=== PATIENT | male | born 1950 | race Caucasian/White ===

== ENCOUNTER 2022-05-03 19:08 | Inpatient (IN) | payer MEDICARE, BC ==
[~2022-05-03] VITALS: Ht 167.6 cm; Wt 63.5 kg
--- NOTE | 2022-05-03 19:20 | NUR ---
DARRYL FROM HOME FOR SHARP SUBSTERNAL CP NON RADIATING, 30 MINS AGO 325 ASPIRIN AND 1 SPRAY NITRO GIVEN BY EMS. PLACED IN BED, AAOX4, BREATHING EVEN AND UNLABORED SATURATING AT 98%RA, ATTACHED TO MONITOR SHOWS NORMAL SINUS RHYTHM PA- 74, IN PAIN 6/10 PS.
--- NOTE | 2022-05-03 19:25 | NUR ---
QUALITY SYSTEMS ENGINEER AT BEDSIDE
[2022-05-03 19:50] LABS: CARBON DIOXIDE 29 mmol/L (21-32); CHLORIDE 103 mmol/L (98-107); CREATININE 0.8 mg/dL (0.6-1.3); GLUCOSE 224 mg/dL (74-106); POTASSIUM 3.9 mmol/L (3.5-5.1); SODIUM SERUM 139 mmol/L (136-145); UREA NITROGEN, BLOOD 13 mg/dL (7-18)
--- NOTE | 2022-05-03 19:50 | NUR ---
SWAB FOR COVID19 SENT TO LAB
[2022-05-03 19:58] LABS: ALANINE AMINOTRANSFERASE 27 U/L (12-78); ALBUMIN 3.7 g/dL (3.4-5.0); ALKALINE PHOSPHATASE 108 U/L (46-116); ASPARTATE AMINOTRANSFERASE 16 U/L (15-37); BILIRUBIN,DIRECT 0.1 mg/dL (0.0-0.2); BILIRUBIN,TOTAL 0.4 mg/dL (0.2-1.0); TOTAL PROTEIN, SERUM 6.6 g/dL (6.4-8.2)
[2022-05-03 20:43] LABS: BASOPHILS % (AUTO) 0.4 % (0.0-2.0); EOSINOPHILS % (AUTO) 2.6 % (0.0-6.0); HEMATOCRIT 37 % (39-51); HEMOGLOBIN 12.7 g/dL (13.5-17.5); LYMPHOCYTES # (AUTO) 1.6 K/uL (0.8-4.8); LYMPHOCYTES % (AUTO) 30.4 % (20.0-44.0); MEAN CORPUSCULAR HGB CONC 34 g/dl (31.0-36.0); MEAN CORPUSCULAR VOLUME 85 fL (80-96); MONOCYTES # (AUTO) 0.4 K/uL (0.1-1.30); MONOCYTES % (AUTO) 7.8 % (2.0-12.0); NEUTROPHILS # (AUTO) 3.1 K/uL (1.8-8.9); NEUTROPHILS % (AUTO) 58.8 % (43.0-81.0); PLATELET COUNT (AUTO) 118 K/uL (150-450); RED BLOOD CELL COUNT(AUTO) 4.43 MIL/uL (4.5-6.0); WHITE BLOOD COUNT (AUTO) 5.2 K/uL (4.3-11.0)
--- NOTE | 2022-05-03 21:18 | NUR ---
EPIC PANEL PAGED
--- NOTE | 2022-05-03 21:23 | NUR ---
LEODAN LEMOS ON THE PHONE WITH DR NIELSEN
--- NOTE | 2022-05-03 22:09 | NUR ---
REPORT GIVEN TO GLADIS LEON ROOM 310-2 FOR TRACEY
--- NOTE | 2022-05-03 22:37 | NUR ---
TRANSFERRED TO 310 UN JJ ACLS
--- NOTE | 2022-05-03 23:00 | NUR ---
RAILWAY TRACK WORKER ADMISSION NOTES ADMITTED A 71 Y/O MALE, CAME FROM ER VIA GURNEY ACCOMPANIED WITH DAUGHTER, NURSE AND SWITCH INSPECTOR AT 2230. PATIENT IS A/O X 4, ABLE TO VERBALIZED NEEDS. PATIENT IS COOPERATIVE AND ORIENTED SURROUNDINGS. TRANSFER PATIENT TO BED SAFETY AND SECURED. WITH INITIAL VITAL SIGNS OF TEMP:97.8, CA: 81, RR:18, SpO2:99, BP:184/79. UPON ASSESSMENT PATIENT COMPLAIN OF CHEST PAIN 5/10 PS, NO OTHER SYMPTOMS. PATIENT IS NOT IN DISTRESS AT THIS TIME. ATTACHED PATIENT TO TELE MONITOR DEVICE. SKIN ASSESSMENT PERFORMED, NOTED SOME REDNESS AND SCRATCHES AT LOWER EXTREMITIES. PICTURE TAKEN AND RECORDED. NO EDEMA NOTED. BOWEL SOUNDS ARE ACTIVE. WITH IV ACCESS AT LFA #20G PATENT AND INTACT. PATIENT HISTORY AND LIST OF MEDICATION TAKEN AND RECORDED. INFORMED DR. CLAIRE REGARDING ADMISSION WITH ORDERS MADE AND CARRIED OUT. ALL PATIENT BELONGINGS ARE ACCOUNTED AND RECORDED FOR. PATIENT IS ORIENTED TO THE UNIT AND HOW TO USE THE CALL LIGHT. HEAD TO TOE PHYSICAL EXAM DONE AND RECORDED. KEPT BED ON LOWER LOCKED POSITION. KEPT SIDE RAILS UP X 2 ALL THE TIME. KEPT CALL LIGHT WITHIN AT REACH. PATIENT IS ON BED REST FOR NOW USES URINAL AND DIAPER. WILL CONTINUE TO MONITOR.
[2022-05-03 23:01] VITALS: BP 194/79
[2022-05-03] MEDS ORDERED: MAGNESIUM HYDROXIDE 30 ML UDC PO PRN (23:30)
[2022-05-03] MEDS ORDERED: ENOXAPARIN SODIUM 40 MG/0.4 ML DISP.SYRIN SQ SCH (23:30)
[2022-05-03] MEDS ORDERED: hydrALAZINE HCL IV 20 MG VIAL IV PRN (23:30)
[2022-05-03] MEDS ORDERED: ACETAMINOPHEN 325 MG TABLET PO PRN (23:30)
[2022-05-03] MEDS ORDERED: Z GUARD REMEDY 4 OZ OINT TP PRN (23:30)
[2022-05-03] MEDS ORDERED: MORPHINE SULFATE INJ 2 MG/ML DISP.SYRIN IV PRN (23:30)
[2022-05-03] MEDS ORDERED: ONDANSETRON HCL/PF 4 MG/2 ML VIAL IVP PRN (23:30)
[2022-05-03] MEDS ORDERED: TAMSULOSIN 0.4 MG CAP.SR.24H PO SCH (23:30)
[2022-05-03] MEDS ORDERED: BISACODYL SUPP (10 MG) 10 MG/SUPP.RECT SUPP.RECT RC PRN (23:30)
[2022-05-03] MEDS ORDERED: ATORVASTATIN 40 MG TABLET PO SCH (23:30)
[2022-05-03] MEDS ORDERED: QUETIAPINE FUMARATE 25 MG TABLET PO ONE (23:30)
[2022-05-04] MEDS: APIXABAN 5 MG TABLET PO SCH ×2 (00:01→08:31)
[2022-05-04 00:10] VITALS: BP 184/75
[2022-05-04] MEDS ORDERED: NITROGLYCERIN PACKET 1 GM PACKET ONE (00:27)
[2022-05-04] MEDS: NITROGLYCERIN 30 GM TUBE TP SCH ×2 (00:30→08:30)
[2022-05-04] MEDS ORDERED: DONEPEZIL 5 MG TABLET PO SCH (00:30)
--- NOTE | 2022-05-04 01:46 | NUR ---
EDWARD ORTHOSTATIC BLOOD PRESSURE LYING ON BED: 122/68 SITTIN/61 STANDIN/51 WILL CONTINUE TO MONITOR
[2022-05-04 01:50] VITALS: BP_SYST 103; BP_SYST 122; BP_DIAS 61; BP_DIAS 68
[2022-05-04 01:51] VITALS: BP 94/51
[2022-05-04 04:52] VITALS: BP 105/57
--- NOTE | 2022-05-04 06:00 | NUR ---
RN NOTES NOTED LOW BLOOD PRESSURE OF 95/55.NO S/S OF DIZZINESS OR CHEST PAIN AT THIS TIME. PUT LOWER EXTREMITIES ELEVATED HOOKED TO OXYGEN SUPPORT AT 2LPM VIA NASAL CANNULA. WILL CONTINUE TO MONITOR.
--- NOTE | 2022-05-04 06:30 | NUR ---
RN NOTES PATIENT BLOOD PRESSURE IS 105/56. WILL CONTINUE TO MONITOR
--- NOTE | 2022-05-04 06:39 | NUR ---
MORTGAGE CLOSING CLERK CLOSING NOTES PATIENT IS IN BED, A/O X 4. AWAKE AND COHERENT ABLE TO VERBALIZED CONCERNS. ON HIGH BACK REST POSITION, NO S/S OF CHEST PAIN OR ANY DISCOMFORT AT THIS TIME. HOOKED TO OXYGEN VIA NASAL CANNULA AT 2LPM SATURATING WELL. WITH IV ACCESS AT LEFT FA #20G PATENT AND INTACT. CONTINENT PATIENT USES URINAL AND WITH BEDSIDE COMMODE AVAILABLE. PATENT AND INTACT. ALL DUE MEDICATIONS GIVEN ALL NEEDS MET. KEPT PATIENT WARM AND COMFORTABLE. KEPT BED ON LOWER LOCK POSITION. KEPT SIDE RAILS UP ALL THE TIME. KEPT CALL LIGHT WITHIN AT REACH. WILL ENDORSED TO AM SHIFT FOR TRACEY.
[2022-05-04 06:57] LABS: BASOPHILS % (AUTO) 0.4 % (0.0-2.0); EOSINOPHILS % (AUTO) 2.6 % (0.0-6.0); HEMATOCRIT 35 % (39-51); HEMOGLOBIN 11.9 g/dL (13.5-17.5); LYMPHOCYTES % (AUTO) 33.4 % (20.0-44.0); MEAN CORPUSCULAR HGB CONC 34 g/dl (31.0-36.0); MEAN CORPUSCULAR VOLUME 85 fL (80-96); MONOCYTES # (AUTO) 0.5 K/uL (0.1-1.30); MONOCYTES % (AUTO) 8.2 % (2.0-12.0); NEUTROPHILS # (AUTO) 3.3 K/uL (1.8-8.9); NEUTROPHILS % (AUTO) 55.4 % (43.0-81.0); PLATELET COUNT (AUTO) 101 K/uL (150-450); RED BLOOD CELL COUNT(AUTO) 4.15 MIL/uL (4.5-6.0)
[2022-05-04] MEDS ORDERED: PANTOPRAZOLE 40 MG TABLET.DR PO SCH (07:30)
--- NOTE | 2022-05-04 07:40 | NUR ---
INVENTORY AUDITOR OPENING NOTE RECEIVED PATIENT IS IN BED, A/O X 4. ABLE TO MAKE NEEDS KNOWN. NO S/S OF CHEST PAIN OR ANY DISCOMFORT AT THIS TIME. HOOKED TO OXYGEN VIA NASAL CANNULA AT 2LPM SATURATING WELL, BREATHING EVEN AND NON LABORED. PT IS ON EXTERNAL BUILDING ATTENDANT READING SR @76 BPM. WITH IV ACCESS AT LEFT FA #20G PATENT AND INTACT, SL. SAFETY MEASURES IN PLACE: CALL LIGHT WITHIN REACH, SIDE RAILS UP X 2, BED LOCKED IN LOWEST POSITION, BED ALARM ON. WILL CONTINUE TO MONITOR.
[2022-05-04 08:00] VITALS: BP 117/68
[2022-05-04 08:03] LABS: FERRITIN 72 ng/mL (8-388)
[2022-05-04 08:04] LABS: CALCIUM, SERUM 8.9 mg/dL (8.5-10.1); CARBON DIOXIDE 25 mmol/L (21-32); CHLORIDE 107 mmol/L (98-107); CREATININE 0.6 mg/dL (0.6-1.3); GLUCOSE 110 mg/dL (74-106); SODIUM SERUM 140 mmol/L (136-145); UREA NITROGEN, BLOOD 11 mg/dL (7-18)
[2022-05-04 08:05] LABS: PHOSPHORUS 4.1 mg/dL (2.5-4.9)
[2022-05-04 08:22] LABS: IRON, SERUM 66 ug/dl (50-175); TOTAL IRON BINDING CAPACITY 274 ug/dl (250-450)
[2022-05-04 08:30] VITALS: BP 117/68
[2022-05-04 08:31] LABS: CHOLESTEROL 89 mg/dL (<200); HDL CHOLESTEROL 42 mg/dL (40-60); LDL 40 mg/dL (0-99); THYROID STIMULATING HORMONE 3.343 uIU/mL (0.358-3.74); TRIGLYCERIDES 99 mg/dL (30-150)
[2022-05-04] MEDS ORDERED: DEXTROSE 50%-WATER 50 ML DISP.SYRIN IV PRN (09:00)
[2022-05-04] MEDS ORDERED: ASPIRIN 81 MG TAB.CHEW PO SCH (09:00)
[2022-05-04] MEDS ORDERED: INSULIN REGULAR, HUMAN 100 UNIT/ML 3 ML VIAL SQ PRN (09:00)
[2022-05-04] MEDS ORDERED: BLOOD SUGAR DIAGNOSTIC 1 EACH STRIP IN SCH (12:00)
--- NOTE | 2022-05-04 13:45 | NUR ---
ELECTRIC PLATER NOTE PATIENT DISCHARGE IN STABLE MEDICAL CONDITION. A/OX4. VS TAKEN, STABLE AND RECORDED. NO IV ACCESS. NAME ARM BAND REMOVED. EXTERNAL CRM SPECIALIST REMOVED AND RETURNED TO TELE DESK. SKIN ASSESSMENT DONE, PT REFUSED PICTURES, STATED THEY TOOK PICTURES YESTERDAY. ALL BELONGINGS LIST SIGNED. HEALTH TEACHING AND DISCHARGE INSTRUCTION GIVEN AND VERBALIZED UNDERSTANDING. DISCUSSES PRESCRIPTIONS WITH PATIENT. HIS BY BEDSIDE, BOTH VERBALIZED UNDERSTANDING. INSTRUCTED PATIENT IN CASE OF EMERGENCY TO CALL 911 OR GO TO THE NEAREST ER. PATIENT LEFT UNIT VIA WHEELCHAIR WITH NO SIGN OF DISTRESS, ACCOMPANIED BY INSULATION APPLICATOR. LEFT WITH HIS SPOUSE. CHARGE NURSE AWARE OF DISCHARGE.
[2022-05-04] MEDS ORDERED: QUETIAPINE FUMARATE 25 MG TABLET PO SCH (22:00)
[2022-05-04] MEDS ORDERED: NORTRIPTYLINE HCL 25 MG CAPSULE PO SCH (22:00)
== END 2022-05-04 13:53 | disposition home or self-care (01) | DRG 206 ==
LOC: ER 19:10 → TELE 22:02
PROVIDERS: ADMIT Nurse Practitioner Family; ATTEND Internal Medicine
DX: M94.0 Chondrocostal junction syndrome [Tietze] (principal); D68.69 Other thrombophilia; R55 Syncope and collapse; G31.83 Neurocognitive disorder with Lewy bodies; F02.80 Dementia in other diseases classified elsewhere, unspecified severity, without behavioral disturbance, psychotic disturbance, mood disturbance, and anxiety; D64.9 Anemia, unspecified; E11.9 Type 2 diabetes mellitus without complications; E78.5 Hyperlipidemia, unspecified; I10 Essential (primary) hypertension; Z95.5 Presence of coronary angioplasty implant and graft; G20 Parkinson's disease; Z88.2 Allergy status to sulfonamides; I25.10 Atherosclerotic heart disease of native coronary artery without angina pectoris; Z79.01 Long term (current) use of anticoagulants; I48.0 Paroxysmal atrial fibrillation; Z79.84 Long term (current) use of oral hypoglycemic drugs; Z79.899 Other long term (current) drug therapy; Z79.82 Long term (current) use of aspirin; K21.9 Gastro-esophageal reflux disease without esophagitis; N40.0 Benign prostatic hyperplasia without lower urinary tract symptoms; Z66 Do not resuscitate; R09.1 Pleurisy
CPT/HCPCS: 36415; 71045-TC; 80048-TC; 80061-TC; 80076-TC; 82728-TC; 82962-TC; 83540-TC; 83735-TC; 83880; 84100-TC; 84443-TC; 84484-TC; 85025-TC; 85730-TC; 87081-TC; C9803; G0378; J1815

== ENCOUNTER 2024-03-23 09:40 | Inpatient (IN) | payer MEDICARE, BC ==
[~2024-03-23] VITALS: Ht 167.6 cm; Wt 67.1 kg
[~2024-03-23 09:40] MED LIST: ALEN70TA80 PO; APIX5TAB PO; ATOR80TA PO; BENZ200C53 PO; BISA-79 PO; BISA10SU61 RC; CALC-1143 PO; CHOL100062 PO; FAMO40TA7 PO; ICOS1CAP PO; LEVO250T59 PO; LIDO5CRE18 TP; MAG30ORA PO; MAGN250T2 PO; MELA5TAB PO; METF-442 PO; MIDO2.5T PO; NA P133E RC; NORT25CA PO; PANT40TA49 PO; POLY17PO4 PO; PRUC2TAB PO; QUET100T PO; SENN8.6T19 PO; SITA100T PO; TRAM50TA2 PO; VIT1CAPS9 PO; VOLTAREN GEL TP
[2024-03-23] MEDS: IV NS 0.9% 1,000 ML BAG IV ONE (10:15)
[2024-03-23 10:33] LABS: CALCIUM, SERUM 10.1 mg/dL (8.5-10.1); CARBON DIOXIDE 34 mmol/L (21-32); CHLORIDE 97 mmol/L (98-107); CREATININE 1.3 mg/dL (0.6-1.3); GLUCOSE 96 mg/dL (74-106); POTASSIUM 4.1 mmol/L (3.5-5.1); SODIUM SERUM 134 mmol/L (136-145); UREA NITROGEN, BLOOD 25 mg/dL (7-18)
[2024-03-23 10:34] LABS: BASOPHILS % (AUTO) 0.1 % (0.0-2.0); EOSINOPHILS # (AUTO) 0.1 K/uL (0.0-0.7); EOSINOPHILS % (AUTO) 1.1 % (0.0-6.0); HEMATOCRIT 34 % (39-51); HEMOGLOBIN 11.6 g/dL (13.5-17.5); LYMPHOCYTES # (AUTO) 0.7 K/uL (0.8-4.8); LYMPHOCYTES % (AUTO) 5.2 % (20.0-44.0); MEAN CORPUSCULAR HEMOGLOBIN 30 PG (26.0-33.0); MEAN CORPUSCULAR HGB CONC 35 g/dl (31.0-36.0); MEAN CORPUSCULAR VOLUME 87 fL (80-96); MONOCYTES # (AUTO) 1.4 K/uL (0.1-1.30); MONOCYTES % (AUTO) 10.4 % (2.0-12.0); NEUTROPHILS # (AUTO) 10.8 K/uL (1.8-8.9); NEUTROPHILS % (AUTO) 83.2 % (43.0-81.0); PLATELET COUNT (AUTO) 122 K/uL (150-450); RED BLOOD CELL COUNT(AUTO) 3.87 MIL/uL (4.5-6.0); RED CELL DISTRIBUTION WIDTH 13.2 % (11.5-15.0)
[2024-03-23 10:39] LABS: ALANINE AMINOTRANSFERASE 26 U/L (12-78); ALKALINE PHOSPHATASE 80 U/L (46-116); ASPARTATE AMINOTRANSFERASE 16 U/L (15-37); BILIRUBIN,DIRECT 0.3 mg/dL (0.0-0.2); BILIRUBIN,TOTAL 0.8 mg/dL (0.2-1.0); TOTAL PROTEIN, SERUM 6.8 g/dL (6.4-8.2)
[2024-03-23 10:46] LABS: LACTIC ACID 1.5 mmol/L (0.4-2.0)
[2024-03-23] MEDS ORDERED: CEFTRIAXONE 1GM BAG (ER ONLY) 50 ML IV ONE (11:02)
[2024-03-23] MEDS: CEFTRIAXONE 1 G in IV D5W 50 ML IV ONE (11:05)
[2024-03-23 11:25] LABS: APPEARANCE,URINE CLEAR (CLEAR); BILIRUBIN,URINE NEGATIVE (NEGATIVE); BLOOD, URINE NEGATIVE Ery/uL (NEGATIVE); COLOR,URINE YELLOW (YELLOW); KETONES,URINE NEGATIVE (NEGATIVE); LEUKOCYTE ESTERASE ,URINE NEGATIVE (NEGATIVE); NITRITE, URINE NEGATIVE (NEGATIVE); PROTEIN,URINE NEGATIVE (NEGATIVE); UGLUCOSE NEGATIVE (NEGATIVE); UROBILINOGEN,URINE 0.2 EU/dL (0.2)
[2024-03-23] MEDS: FUROSEMIDE 20 MG/2 ML VIAL IV ONE (11:45)
[2024-03-23] MEDS ORDERED: AZITHROMYCIN 250 MG TABLET ONE (11:59)
[2024-03-23] MEDS: AZITHROMYCIN 250 MG TABLET PO ONE (12:04)
[2024-03-23] MEDS ORDERED: METH1TAB69 PO (12:31)
[2024-03-23] MEDS ORDERED: VITAMIN PO (12:31)
[2024-03-23] MEDS ORDERED: CALCIUM PO (12:31)
[2024-03-23] MEDS ORDERED: BUTTERBUR PO (12:31)
[2024-03-23] MEDS ORDERED: SAXA5TAB PO (12:31)
[2024-03-23] MEDS ORDERED: DONE10TA44 PO (12:31)
[2024-03-23] MEDS ORDERED: PEPP90CA PO (12:31)
[2024-03-23] MEDS ORDERED: ASCO-373 PO (12:31)
[2024-03-23] MEDS ORDERED: HYDR-4076 PO (12:31)
[2024-03-23] MEDS ORDERED: VITAMIN B PO (12:31)
[2024-03-23] MEDS ORDERED: LISI10TA29 PO (12:31)
[2024-03-23] MEDS ORDERED: CRANBERRY PO (12:31)
[2024-03-23] MEDS ORDERED: ZOLPIDEM TARTRATE 5 MG TABLET PO PRN (17:30)
[2024-03-23] MEDS ORDERED: Z GUARD REMEDY 4 OZ OINT TP PRN (17:30)
[2024-03-23] MEDS ORDERED: TRAMADOL HCL 50 MG TABLET PO PRN (17:30)
[2024-03-23] MEDS ORDERED: hydrALAZINE HCL 25 MG TABLET PO PRN (17:30)
[2024-03-23] MEDS ORDERED: FAMOTIDINE (20 MG) 20 MG TABLET PO PRN (17:30)
[2024-03-23] MEDS ORDERED: MAGNESIUM HYDROXIDE 30 ML UDC PO PRN (17:30)
[2024-03-23] MEDS: ENOXAPARIN SODIUM 40 MG/0.4 ML DISP.SYRIN SQ SCH (17:30)
[2024-03-23] MEDS ORDERED: NA PHOS,M-B/NA PHOS,DI-BA 1 EA ENEMA RC PRN (17:30)
[2024-03-23] MEDS ORDERED: ONDANSETRON HCL/PF 4 MG/2 ML VIAL IVP PRN (17:30)
[2024-03-23] MEDS ORDERED: MAG HYDROX/AL HYDROX/SIMETH 30 ML UDC PO PRN (17:30)
[2024-03-23 18:00] VITALS: BP 150/63; TEMP 99; O2SAT 99
[2024-03-23] MEDS ORDERED: Medication Not On Formulary EA (Prucalopride Succinate (Motegrity) 2 MG) PO SCH (18:00)
[2024-03-23] MEDS: ATORVASTATIN 40 MG TABLET PO SCH (18:56)
[2024-03-23 20:00] VITALS: BP 137/54; TEMP 98.8; O2SAT 97
[2024-03-23] MEDS: LISINOPRIL (10MG) 10 MG TABLET PO SCH (20:57)
[2024-03-23] MEDS: APIXABAN 5 MG TABLET PO SCH (20:58)
[2024-03-23] MEDS: QUETIAPINE FUMARATE 100 MG TABLET PO SCH (21:43)
[2024-03-23] MEDS: NORTRIPTYLINE HCL 25 MG CAPSULE PO SCH (21:43)
[2024-03-23] MEDS: DONEPEZIL 5 MG TABLET PO SCH (21:43)
[2024-03-23] MEDS ORDERED: MELATONIN 20 MG PO SCH (22:00)
[2024-03-23] MEDS: ACETAMINOPHEN 325 MG TABLET PO PRN (23:49)
[2024-03-24] VITALS: BP 151/71; TEMP 98.2; O2SAT 95
[2024-03-24] MEDS ORDERED: TRAMADOL HCL 50 MG TABLET PO PRN
[2024-03-24 04:00] VITALS: BP 103/45; TEMP 97.5; O2SAT 97
[2024-03-24 07:28] LABS: BASOPHILS % (AUTO) 0.1 % (0.0-2.0); EOSINOPHILS # (AUTO) 0.3 K/uL (0.0-0.7); EOSINOPHILS % (AUTO) 2.4 % (0.0-6.0); HEMATOCRIT 31 % (39-51); HEMOGLOBIN 10.9 g/dL (13.5-17.5); LYMPHOCYTES # (AUTO) 1.1 K/uL (0.8-4.8); LYMPHOCYTES % (AUTO) 10.2 % (20.0-44.0); MEAN CORPUSCULAR HEMOGLOBIN 31 PG (26.0-33.0); MEAN CORPUSCULAR HGB CONC 35 g/dl (31.0-36.0); MEAN CORPUSCULAR VOLUME 87 fL (80-96); MONOCYTES # (AUTO) 1.1 K/uL (0.1-1.30); MONOCYTES % (AUTO) 10.5 % (2.0-12.0); NEUTROPHILS # (AUTO) 8.3 K/uL (1.8-8.9); NEUTROPHILS % (AUTO) 76.8 % (43.0-81.0); PLATELET COUNT (AUTO) 132 K/uL (150-450); RED BLOOD CELL COUNT(AUTO) 3.55 MIL/uL (4.5-6.0); RED CELL DISTRIBUTION WIDTH 13.3 % (11.5-15.0); WHITE BLOOD COUNT (AUTO) 10.9 K/uL (4.3-11.0)
[2024-03-24 08:00] VITALS: BP 108/56; TEMP 97.9; O2SAT 98
[2024-03-24 08:10] LABS: CREATININE 0.7 mg/dL (0.6-1.3); MAGNESIUM 1.6 mg/dL (1.8-2.4); PHOSPHORUS 2.9 mg/dL (2.5-4.9); POTASSIUM 4.1 mmol/L (3.5-5.1)
[2024-03-24 08:40] LABS: THYROID STIMULATING HORMONE 2.26 uIU/mL (0.358-3.74)
[2024-03-24] MEDS: MAG HYDROX/AL HYDROX/SIMETH 30 ML UDC PO SCH (08:57)
[2024-03-24] MEDS: POLYETHYLENE GLYCOL 3350 17 GM POWD.PACK PO SCH (08:57)
[2024-03-24] MEDS: SENNOSIDES 8.6 MG TABLET PO SCH (08:58)
[2024-03-24] MEDS: METFORMIN 500 MG TABLET PO SCH (08:58)
[2024-03-24] MEDS: MULTIVITAMIN/LUTEIN/MINERALS 1 TAB PO SCH (08:58)
[2024-03-24] MEDS: ASCORBIC ACID 500 MG TABLET PO SCH (08:58)
[2024-03-24] MEDS: BISACODYL (5 MG) 5 MG TABLET.DR PO SCH (08:59)
[2024-03-24] MEDS: PANTOPRAZOLE 40 MG TABLET.DR PO SCH (08:59)
[2024-03-24] MEDS ORDERED: Medication Not On Formulary EA (Icosapent Ethyl (Vascepa) 2 GM) PO SCH (09:00)
[2024-03-24] MEDS ORDERED: Medication Not On Formulary EA (Methenamine Hippurate 1 GM) PO SCH (09:00)
[2024-03-24] MEDS ORDERED: PEPPERMINT OIL PO SCH (09:00)
[2024-03-24] MEDS: MAGNESIUM OXIDE 400 MG TABLET PO ONE (11:01)
[2024-03-24] MEDS: CEFTRIAXONE 1 G in IV D5W 50 ML IV SCH (11:03)
[2024-03-24] MEDS: AZITHROMYCIN 500 MG in IV D5W 250 ML IV SCH (11:39)
[2024-03-24 16:00] VITALS: BP 140/70; TEMP 99; O2SAT 98
[2024-03-24 20:00] VITALS: BP 137/57; TEMP 98.1; O2SAT 98
[2024-03-24] MEDS: BISACODYL SUPP (10 MG) 10 MG/SUPP.RECT SUPP.RECT RC PRN (20:05)
[2024-03-24 20:32] VITALS: BP 137/57; TEMP 98.1; O2SAT 98
[2024-03-24] MEDS: NA PHOS,M-B/NA PHOS,DI-BA 1 EA ENEMA RC PRN (21:49)
[2024-03-24] MEDS: MAGNESIUM OXIDE 400 MG TABLET PO SCH (23:08)
[2024-03-25 07:09] LABS: BASOPHILS % (AUTO) 0.3 % (0.0-2.0); EOSINOPHILS # (AUTO) 0.2 K/uL (0.0-0.7); EOSINOPHILS % (AUTO) 2.7 % (0.0-6.0); HEMATOCRIT 31 % (39-51); HEMOGLOBIN 10.9 g/dL (13.5-17.5); LYMPHOCYTES # (AUTO) 1.2 K/uL (0.8-4.8); LYMPHOCYTES % (AUTO) 13.3 % (20.0-44.0); MEAN CORPUSCULAR HEMOGLOBIN 31 PG (26.0-33.0); MEAN CORPUSCULAR HGB CONC 35 g/dl (31.0-36.0); MEAN CORPUSCULAR VOLUME 86 fL (80-96); MONOCYTES # (AUTO) 1.3 K/uL (0.1-1.30); MONOCYTES % (AUTO) 14.1 % (2.0-12.0); NEUTROPHILS # (AUTO) 6.3 K/uL (1.8-8.9); NEUTROPHILS % (AUTO) 69.6 % (43.0-81.0); PLATELET COUNT (AUTO) 144 K/uL (150-450); RED BLOOD CELL COUNT(AUTO) 3.57 MIL/uL (4.5-6.0); RED CELL DISTRIBUTION WIDTH 13.3 % (11.5-15.0)
[2024-03-25 08:00] VITALS: BP 121/54; TEMP 98.4; O2SAT 97
[2024-03-25 08:12] LABS: CALCIUM, SERUM 9.6 mg/dL (8.5-10.1); CREATININE 0.9 mg/dL (0.6-1.3); MAGNESIUM 1.5 mg/dL (1.8-2.4); POTASSIUM 4.3 mmol/L (3.5-5.1)
[2024-03-25 08:32] LABS: EOSINOPHILS % (MANUAL) 2 % (0-4); LYMPHOCYTES % (MANUAL) 11 % (16-48); MONOCYTES % (MANUAL) 15 % (0-11.0); MYELOCYTES % 1 % (0-0); PLATELET ESTIMATE DECREASED
[2024-03-25 08:33] LABS: NEUTROPHILS % (MANUAL) 71 (42-76)
[2024-03-25] MEDS: CALCIUM CARB 250MG /VITAMIN D 1 UDTAB PO SCH (09:17)
[2024-03-25] MEDS: MAGNESIUM OXIDE 400 MG TABLET PO ONE (11:36)
[2024-03-25 16:00] VITALS: BP 168/68; TEMP 98.4; O2SAT 98
[2024-03-25] MEDS ORDERED: CEFEPIME 1 GM in IV D5W 50 ML IV SCH (20:30)
[2024-03-25 20:55] VITALS: BP 173/71; TEMP 98.2; O2SAT 97
[2024-03-25] MEDS: CEFEPIME 2 GM in IV D5W 100 ML IV SCH (21:15)
[2024-03-26] MEDS: GUAIFENESIN/D-METHORPHAN HB 5 ML UDC PO PRN (00:14)
[2024-03-26 07:24] LABS: CALCIUM, SERUM 9.2 mg/dL (8.5-10.1); CREATININE 0.7 mg/dL (0.6-1.3); MAGNESIUM 1.4 mg/dL (1.8-2.4)
[2024-03-26 07:29] LABS: BASOPHILS % (AUTO) 0.2 % (0.0-2.0); EOSINOPHILS # (AUTO) 0.2 K/uL (0.0-0.7); EOSINOPHILS % (AUTO) 1.9 % (0.0-6.0); HEMATOCRIT 31 % (39-51); HEMOGLOBIN 10.8 g/dL (13.5-17.5); LYMPHOCYTES # (AUTO) 1.2 K/uL (0.8-4.8); LYMPHOCYTES % (AUTO) 13.7 % (20.0-44.0); MEAN CORPUSCULAR HEMOGLOBIN 30 PG (26.0-33.0); MEAN CORPUSCULAR HGB CONC 35 g/dl (31.0-36.0); MEAN CORPUSCULAR VOLUME 86 fL (80-96); MONOCYTES # (AUTO) 1.3 K/uL (0.1-1.30); MONOCYTES % (AUTO) 14.1 % (2.0-12.0); NEUTROPHILS # (AUTO) 6.2 K/uL (1.8-8.9); NEUTROPHILS % (AUTO) 70.1 % (43.0-81.0); PLATELET COUNT (AUTO) 154 K/uL (150-450); RED BLOOD CELL COUNT(AUTO) 3.56 MIL/uL (4.5-6.0); RED CELL DISTRIBUTION WIDTH 13.2 % (11.5-15.0); WHITE BLOOD COUNT (AUTO) 8.9 K/uL (4.3-11.0)
[2024-03-26 08:00] VITALS: BP 109/56; TEMP 97.9; O2SAT 97
[2024-03-26 08:27] LABS: EOSINOPHILS % (MANUAL) 2 % (0-4); LYMPHOCYTES % (MANUAL) 12 % (16-48); MONOCYTES % (MANUAL) 15 % (0-11.0); PLATELET ESTIMATE ADEQUATE
[2024-03-26 08:28] LABS: NEUTROPHILS % (MANUAL) 71 (42-76)
[2024-03-26] MEDS: LINAGLIPTIN 5 MG TABLET PO SCH (09:26)
[2024-03-26] MEDS: MAGNESIUM OXIDE 400 MG TABLET PO SCH (11:37)
[2024-03-26] MEDS: AZITHROMYCIN 250 MG TABLET PO SCH (12:07)
[2024-03-26 16:00] VITALS: BP 160/70; TEMP 97.9; O2SAT 97
[2024-03-26] MEDS: CEFEPIME 2 GM in IV D5W 100 ML IV SCH (16:38)
[2024-03-26] MEDS ORDERED: DEXTROSE 50%-WATER 50 ML DISP.SYRIN IV PRN (17:30)
[2024-03-26] MEDS: BLOOD SUGAR DIAGNOSTIC 1 EACH STRIP IN SCH (17:45)
[2024-03-26] MEDS: INSULIN REGULAR, HUMAN 100 UNIT/ML 3 ML VIAL SQ PRN (17:47)
[2024-03-26 20:00] VITALS: BP 180/75; TEMP 98.6; O2SAT 97
[2024-03-27 07:57] LABS: BASOPHILS % (AUTO) 0.1 % (0.0-2.0); EOSINOPHILS # (AUTO) 0.2 K/uL (0.0-0.7); EOSINOPHILS % (AUTO) 1.9 % (0.0-6.0); HEMATOCRIT 33 % (39-51); HEMOGLOBIN 11.2 g/dL (13.5-17.5); LYMPHOCYTES # (AUTO) 1.2 K/uL (0.8-4.8); LYMPHOCYTES % (AUTO) 11.6 % (20.0-44.0); MEAN CORPUSCULAR HEMOGLOBIN 30 PG (26.0-33.0); MEAN CORPUSCULAR HGB CONC 34 g/dl (31.0-36.0); MEAN CORPUSCULAR VOLUME 87 fL (80-96); MONOCYTES # (AUTO) 1.4 K/uL (0.1-1.30); MONOCYTES % (AUTO) 12.7 % (2.0-12.0); NEUTROPHILS # (AUTO) 7.9 K/uL (1.8-8.9); NEUTROPHILS % (AUTO) 73.7 % (43.0-81.0); PLATELET COUNT (AUTO) 181 K/uL (150-450); RED BLOOD CELL COUNT(AUTO) 3.74 MIL/uL (4.5-6.0); RED CELL DISTRIBUTION WIDTH 13.2 % (11.5-15.0); WHITE BLOOD COUNT (AUTO) 10.7 K/uL (4.3-11.0)
[2024-03-27 08:00] VITALS: BP 118/52; TEMP 97.8; O2SAT 96
[2024-03-27 08:25] LABS: CALCIUM, SERUM 9.6 mg/dL (8.5-10.1); CREATININE 0.7 mg/dL (0.6-1.3); MAGNESIUM 1.7 mg/dL (1.8-2.4); POTASSIUM 4.9 mmol/L (3.5-5.1)
[2024-03-27 08:57] LABS: EOSINOPHILS % (MANUAL) 2 % (0-4); LYMPHOCYTES % (MANUAL) 10 % (16-48); MONOCYTES % (MANUAL) 11 % (0-11.0); MYELOCYTES % 2 % (0-0); NEUTROPHILS % (MANUAL) 75 (42-76); PLATELET ESTIMATE ADEQUATE
[2024-03-27] MEDS ORDERED: AMOX-430 PO (09:39)
[2024-03-27] MEDS ORDERED: GUAI5SYR PO (09:39)
[2024-03-27 09:58] VITALS: BP 118/52
== END 2024-03-27 12:15 | disposition home health service (06) | DRG 194 ==
LOC: ER 09:49 → TELE 16:55 → MED 03-24 10:18
PROVIDERS: ADMIT Student in an Organized Health Care Education/Training Program; ATTEND Nurse Practitioner Acute Care
DX: J15.9 Unspecified bacterial pneumonia (principal); E44.0 Moderate protein-calorie malnutrition; E87.1 Hypo-osmolality and hyponatremia; D69.6 Thrombocytopenia, unspecified; E86.0 Dehydration; Z20.822 Contact with and (suspected) exposure to COVID-19; F02.80 Dementia in other diseases classified elsewhere, unspecified severity, without behavioral disturbance, psychotic disturbance, mood disturbance, and anxiety; G20.A1 Parkinson's disease without dyskinesia, without mention of fluctuations; I25.10 Atherosclerotic heart disease of native coronary artery without angina pectoris; I10 Essential (primary) hypertension; I48.91 Unspecified atrial fibrillation; Z95.5 Presence of coronary angioplasty implant and graft; Z96.651 Presence of right artificial knee joint; Z87.828 Personal history of other (healed) physical injury and trauma; Z98.890 Other specified postprocedural states; Z79.83 Long term (current) use of bisphosphonates; Z79.01 Long term (current) use of anticoagulants; Z79.84 Long term (current) use of oral hypoglycemic drugs; Z79.899 Other long term (current) drug therapy; E11.36 Type 2 diabetes mellitus with diabetic cataract; K21.9 Gastro-esophageal reflux disease without esophagitis; D64.9 Anemia, unspecified; Z87.442 Personal history of urinary calculi; Z86.73 Personal history of transient ischemic attack (TIA), and cerebral infarction without residual deficits; Z88.2 Allergy status to sulfonamides; R79.89 Other specified abnormal findings of blood chemistry; Z86.59 Personal history of other mental and behavioral disorders; R09.02 Hypoxemia; Z87.39 Personal history of other diseases of the musculoskeletal system and connective tissue
CPT/HCPCS: 36415; 71045-TC; 80048-TC; 80076-TC; 82962-TC; 83605-TC; 83735-TC; 83880; 84100-TC; 84443-TC; 84484-TC; 85025-TC; 87040-TC; 92526; 92611-TC; 93307-TC; 97112-TC; 97116-TC; 97530-TC; A4223; G0378; J0456; J0692; J0696; J1650; J1815; J7030; J7060